=== PATIENT | male | born 1995 | race Two or more races ===

== ENCOUNTER 2017-07-26 11:33 | Outpatient (CLI) | payer OTHER | END 2017-07-26 11:36 | disposition home or self-care (01) | LOC: LAB 11:33 | DX: E11.9 Type 2 diabetes mellitus without complications (principal) ==

== ENCOUNTER 2017-07-26 12:14 | Outpatient (CLI) | payer OTHER | END 2017-07-26 17:15 | disposition home or self-care (01) | LOC: SONOGRAMA 12:14 | DX: E11.9 Type 2 diabetes mellitus without complications (principal) ==

== ENCOUNTER 2017-10-01 09:35 | Emergency (ER) | payer OTHER ==
[~2017-10-01] VITALS: Ht 180.3 cm; Wt 68.0 kg
== END 2017-10-01 13:24 | disposition home or self-care (01) ==
LOC: ER 09:35
DX: S30.0XXA Contusion of lower back and pelvis, initial encounter (principal); S70.01XA Contusion of right hip, initial encounter; G89.11 Acute pain due to trauma; W18.39XA Other fall on same level, initial encounter; Y93.89 Activity, other specified; Y92.098 Other place in other non-institutional residence as the place of occurrence of the external cause; Y99.8 Other external cause status

== ENCOUNTER 2018-08-09 20:32 | Emergency (ER) | payer OTHER ==
[~2018-08-09] VITALS: Ht 180.3 cm; Wt 74.4 kg
== END 2018-08-09 22:09 | disposition home or self-care (01) ==
LOC: ER 20:32
DX: A54.00 Gonococcal infection of lower genitourinary tract, unspecified (principal)

== ENCOUNTER 2018-08-10 15:46 | Emergency (ER) | payer OTHER ==
[~2018-08-10] VITALS: Ht 180.3 cm; Wt 74.4 kg
== END 2018-08-10 17:49 | disposition home or self-care (01) ==
LOC: ER 15:46
DX: J31.2 Chronic pharyngitis (principal)

== ENCOUNTER 2018-11-12 19:09 | Emergency (ER) | payer OTHER ==
[~2018-11-12] VITALS: Ht 180.3 cm; Wt 74.8 kg
[2018-11-13] MEDS ORDERED: KETO10TA2 PO (00:24)
[2018-11-13] MEDS ORDERED: NEBUSAL4 M1 IH (00:24)
[2018-11-13] MEDS ORDERED: TESSALON PERLE100 M1 PO (00:24)
[2018-11-13] MEDS ORDERED: MUCINEX DM ER1 EAC1 PO (00:24)
== END 2018-11-13 00:28 | disposition home or self-care (01) ==
LOC: ER 19:09
DX: J06.9 Acute upper respiratory infection, unspecified (principal)

== ENCOUNTER 2019-04-22 10:19 | Emergency (ER) | payer OTHER ==
[~2019-04-22] VITALS: Ht 175.3 cm; Wt 75.3 kg
[~2019-04-22 10:19] MED LIST: KETO10TA2 PO; MUCINEX DM ER1 EAC1 PO; NEBUSAL4 M1 IH; TESSALON PERLE100 M1 PO
== END 2019-04-22 12:00 | disposition home or self-care (01) ==
LOC: ER 10:19
DX: A54.89 Other gonococcal infections (principal); A74.89 Other chlamydial diseases

== ENCOUNTER 2019-05-03 19:27 | Emergency (ER) | payer OTHER ==
[~2019-05-03] VITALS: Ht 180.3 cm; Wt 77.1 kg
[2019-05-03] MEDS ORDERED: LOTRISONE CREAM45 GM {1, null} (21:47)
== END 2019-05-03 22:24 | disposition home or self-care (01) ==
LOC: ER 19:27
DX: M79.622 Pain in left upper arm (principal)